=== PATIENT | female | born 1970 | race Two or more races ===

== ENCOUNTER 2024-07-30 13:34 | Emergency (ER) | payer MEDICAID, SELFPAY ==
[2024-07-30 13:36] VITALS: BMI 30.7
[2024-07-30 14:41] VITALS: BP 125/77; PULSE 67; RESP 18; TEMP 36.9; O2SAT 99
--- NOTE | 2024-07-30 14:54 | XR_ITS ---
Examination: PA lateral chest 2 views TECHNIQUE: Upright PA lateral chest 2 views Exam date and time: July 30, 2024 1517 hours INDICATIONS: Chest pain coughing fever beginning 5 days ago. FINDINGS: Normal heart size Lungs are clear. The osseous structures are intact IMPRESSION: No active disease
--- NOTE | 2024-07-30 14:54 | EKG_ITS ---
[facility] Test Date: 2024-07-30 Pat Name: AVIS LIU Department: Room: - Gender: Female Inspector Health Care Facilities: : 1970 Requested By: Raul Higginbotham (GISSELLE) Order Number: [id number] Reading MD: Raul Higginbotham (GISSELLE) Measurements Intervals [place] Rate: 65 P: 45 KS: 143 QRS: 16 QRSD: 91 T: 36 QT: 380 QTc: 397 Interpretive Statements SINUS RHYTHM No previous ECG available for comparison /[id number]
--- NOTE | 2024-07-30 14:54 | PD.EDRME ---
Rapid Medical Screening Exam RME Arrival date/time: 07/30/24 13:34 53-year-old female presents to the emerged part today complaints of dizziness and fatigue Chief Complaint: Dizziness Vital signs: Vital Signs Temperature 98.5 F 07/30/24 14:41 Pulse Rate 67 07/30/24 14:41 Respiratory Rate 18 07/30/24 14:41 Blood Pressure 125/77 07/30/24 14:41 Pulse Oximetry (%) 99 07/30/24 14:41 Oxygen Delivery Method Room Air 07/30/24 14:41
[2024-07-30 15:28] LABS: Basophils % (Auto) 1 % (0-2.5); Eosinophils # (Auto) 0.1 Thou/mm3 (0.0-0.5); Eosinophils % (Auto) 1 % (0-10); Hematocrit 43.8 % (36.0-46.0); Hemoglobin 14.8 g/dL (12.0-16.0); Immature Granulocytes % (Auto) 0 % (0-0); Immature Granulocytes Auto 0.01 Thou/mm3 (0.00-0.00); Lymphocytes # (Auto) 1.2 Thou/mm3 (1.0-4.8); Lymphocytes % (Auto) 25 % (10-50); Mean Corpuscular HGB Conc 33.8 g/dl (31.0-37.0); Mean Corpuscular Hemoglobin 31.9 pg (25.0-35.0); Mean Corpuscular Volume 94 fL (80-100); Monocytes # (Auto) 0.5 Thou/mm3 (0.0-0.8); Monocytes % (Auto) 11 % (0-12); Neutrophils % (Auto) 62 % (37-80); Nucleated Red Blood Cell % 0 /100 WBC (0); Platelet Count 236 Thou/mm3 (140-440); RDW Standard Deviation 42.8 fL (36.4-46.3); Red Blood Count 4.64 Miln/mm3 (4.00-5.20); White Blood Count 4.8 Thou/mm3 (3.6-11.0)
[2024-07-30 15:37] LABS: Collection Type, Urine Clean Catch
[2024-07-30 15:45] LABS: Bilirubin,Urine Negative (Negative); Blood,Urine Negative (Negative); Clarity,Urine Clear (Clear/Hazy); Color,Urine Colorless (Lt Yel-Yel); Culture Indicated,Urine Not Indicated; Glucose, Urine Negative (Negative); Ketones,Urine Negative (Negative); Leukocyte Esterase,Urine Positive (Negative); Nitrite,Urine Negative (Negative); PH,Urine 6.5 (5.0-7.0); Protein,Urine Negative (Neg - Trace); RBC,Urine 3 /hpf (0-3); Specific Gravity,Urine 1.009 (1.001-1.035); Squamous Epithelial Cell,Urine 1 /hpf (0-5); Urobilinogen,Urine Negative mg/dL (0.0-1.0); WBC,Urine 4 /hpf (0-5)
[2024-07-30 16:37] LABS: Alanine Aminotransferase 21 U/L (10-49); Albumin, Serum 4.6 gm/dL (3.5-5.0); Albumin/Globulin Ratio 1.5 (1.2-2.2); Alkaline Phosphatase 112 U/L (46-116); Anion Gap 5 (7-16); Aspartate Amino Transferase 22 U/L (0-34); BUN/Creatinine Ratio 21 Ratio (12-20); Bilirubin,Total 0.4 mg/dL (0.3-1.2); Blood Urea Nitrogen 15 mg/dL (9-23); Calcium 9.3 mg/dL (8.3-10.6); Calcium (Corrected) 9.3 mg/dL (8.5-10.1); Carbon Dioxide 31.5 mMol/L (20.0-31.0); Chloride 106 mMol/L (98-107); Creatinine (Component) 0.7 mg/dL (0.6-1.3); Glucose 107 mg/dL (74-106); Osmolality,Calculated 283 (275-295); Potassium 4.6 mMol/L (3.4-5.1); Sodium 142 mMol/L (136-145); Total Protein 7.6 gm/dL (5.7-8.2); Troponin I < 0.002 ng/mL (0.0-0.045); eGFR > 60 See Note
[2024-07-30 17:36] VITALS: BP 109/59; PULSE 66; RESP 16; TEMP 36.7; O2SAT 99
--- NOTE | 2024-07-30 17:46 | EDNOTE_ITS ---
<Statement entered by Maren Natarajan MD - 07/31/24 16:16> As co-signing physician, I was present and available for consult prn. I concur with the plan and care as documented by the midlevel provider. ED Dizzyness RME/HPI General Chief Complaint: Dizziness Stated Complaint: DIZZINESS, SOB, WEAKNESS Time Seen by Provider: 07/30/24 17:35 Arrival date/time: 07/30/24 13:34 RME / HPI RME / HPI Narrative: 53-year-old female presents to the emerged part today complaints of dizziness and fatigue. Severity of symptoms mild. Patient was having flulike symptoms few days ago. And took [id number]-[id number] TheraFlu. Patient denies any other complaints no medications taken prior to arrival. Related Data Previous Rx's ?Medication ?Instructions ?Recorded diphenhydramine HCl 25 mg capsule 50 mg (2 x 25 mg) PO TID PRN 02/18/20 (Benadryl) allergy symptoms #20 caps Allergies Allergy/AdvReac Type Severity Reaction Status Date / Time No Known Allergies Allergy Verified 07/30/24 13:35 Review of Systems Review of Systems Narrative Review of Systems: Review of system reviewed and within normal limits except mentioned in HPI ED Exam Narrative Physical exam: VITAL SIGNS: Reviewed. GENERAL APPEARANCE: Alert and interactive, follows commands, no acute distress, HEAD AND FACE: Non-traumatic. ENT: PERRL, pink conjunctivitis, eyelid no trauma, Mucous membrane moist. NECK: Supple, nontender, no nuchal rigidity. CHEST: No tenderness, no crepitus, no paradoxical movement, no retractions. LUNGS: Clear, well ventilated, symmetric, no rales, no wheezing, no ronchi, no stridor, good breath sounds bilaterally. HEART: Regular rate, regular rhythm, no murmur, no gallops. ABDOMEN: Soft, positive bowel sounds, nondistended, no guarding, nontender, no rebound, no masses, RECTAL: Deferred. GENITAL: Deferred. NEUROLOGICAL: Gross motor function intact sensory function intact, Appropriate for age. MUSCULOSKELETAL: low back nontender, full range of motion. EXTREMITIES: Nontender, full range of motion. SKIN: Color pink, dry, no rash, no lacerations, no abrasions, no contusions. LYMPHATICS: Deferred. Course Quality Measures none Orders Category Date Time Status EKG (ED ONLY) *Do not use* NOW Care 07/30/24 14:54 Completed EKG (ED Only) Stat Exams 07/30/24 14:54 Draft XR chest 2V Stat Exams 07/30/24 14:54 Completed CBC Stat Lab 07/30/24 15:11 Completed Comprehensive Metabolic Panel Stat Lab 07/30/24 15:53 Completed Troponin I Stat Lab 07/30/24 15:53 Completed UA, C/S IF [Urinalysis, C/S if Indicated] Stat Lab 07/30/24 15:26 Completed Vital Signs Vital signs: Vital Signs Temperature 98.5 F 07/30/24 14:41 Pulse Rate 67 07/30/24 14:41 Respiratory Rate 18 07/30/24 14:41 Blood Pressure 125/77 07/30/24 14:41 Pulse Oximetry (%) 99 07/30/24 14:41 Oxygen Delivery Method Room Air 07/30/24 14:41 Dizziness MDM Narrative MDM Narrative:: 53-year-old female presents to the [facility] part today complaints of dizziness and fatigue. Severity of symptoms mild. Patient was having flulike symptoms few days ago. And took [id number] TheraFlu. Patient denies any other complaints no medications taken prior to arrival. Patient EKG as interpreted by me shows sinus rhythm, ventricular rate of [address] segment elevation depression noted. I personally reviewed and interpreted the x-ray of this patient. There is no acute abnormalities found, no infiltrates no pneumothorax no hemothorax normal chest x-ray. Review of other structures was without significant abnormal findings also. I additionally reviewed the radiologist report and agree with the interpretation. Laboratory workup all came back normal. While waiting in the emergency room, patient told me that her symptoms is completely gone. Patient is ambulatory unaided. Patient appears nontoxic and hemodynamically stable. Patient discharged home and instructed to follow-up with primary care provider in 24 to 48 hours. Instructed to return to the emergency department immediately if worsening of symptoms Patient data External records reviewed:: None Clinical information provided by:: patient and family Social determinants that could affect healthcare access:: none Patient has the following chronic illnesses:: None How is presenting disease/condition affected by chronic disease/condition?: no chronic disease Evaluation data The following diagnostics were reviewed and interpreted by me:: lab results, radiology exam(s) and EKG tracing(s) Lab and/or radiology exams considered but not ordered:: None Interpretation Summary: See results in MDM Medications / Prescriptions Medications or Prescriptions considered but not ordered:: None Medication administrations:: None Consultations Consultation(s) initiated? (list below): No Diagnosis Dizziness Differential Diagnosis: orthostatic hypotension and other (Dizziness, generalized weakness, dehydration) Most likely diagnosis given after review of the tests above:: Dizziness Admission Indicated Admission indicated?: not indicated Admission Request Was there a request for admission?: No Disposition Plan Disposition Plan: Discharge Discharge Attestation Discharge Attestation: The patient and all family members were given an opportunity to ask questions and understood the discharge instructions. Discharge instructions specifically effects, indications for sooner follow up or return to the emergency department, and the expected course of current diagnosis. Patient condition: Stable Discharge Plan Plan Patient Disposition: HOME (Self Care) Disposition Comment: Stable Prescriptions/Referrals Prescriptions/Med Rec: No Action diphenhydramine HCl [Benadryl] 25 mg capsule 50 mg PO TID PRN (Reason: allergy symptoms) Qty: 20 0RF Problem List Clinical Impression: Dizziness Patient/Caregiver Discharge Instructions Discharge Activity: activity as tolerated Education Materials: ED Dizziness, Uncertain Cause Additional Instructions: Thank you for the opportunity for serving you today. You are stable for discharged . You are advised to: Follow-up with your PCP in 1 to 2 days Return to ED for worsening of symptoms Increase oral fluids Print Language: Mohawk Stand Alone Forms: Isabel Award Info., Patient Portal Info Letter AJAY/JULIA Supervising Physician AJAY/JULIA Supervising Physician: MD Delgado
== END 2024-07-30 18:00 | disposition home or self-care (01) ==
PROVIDERS: Nurse Practitioner Primary Care; Emergency Provider Emergency Medicine; PCP Family Medicine
DX: R42 Dizziness and giddiness (principal); R07.9 Chest pain, unspecified; R05.9 Cough, unspecified
CPT/HCPCS: 36415; 71046; 80053; 81001; 84484; 85025; 93005; 99283